=== PATIENT | female | born 1970 | race Caucasian/White ===

== ENCOUNTER → 2018-10-31 | Outpatient (CLI) | payer OTHER ==
[~2018-10-31] MED LIST: ESTR1PAT10 TD; GADOBUTROL 7.5 MMOL/7.5 ML VIAL IV ONE
--- NOTE | 2018-10-31 13:11 | KCIC ---
MRI of the cervical spine without and with contrast 10/31/2018 CLINICAL HISTORY: Neck pain with left arm pain, numbness and weakness. TECHNIQUE: Unenhanced T1-weighted, T2-weighted and inversion recovery sagittal and gradient echo, T1-weighted and T2-weighted axial images of the cervical spine were obtained. After the intravenous administration of 4.5 cc of Gadavist, enhanced T1-weighted sagittal and axial images of the cervical spine were obtained. FINDINGS: Comparison study is dated 01/20/2012. Mild lateral curvature of the cervical spine is seen convex to the right. There is straightening of the normal cervical lordosis. The patient is post anterior fusion using an anterior plate, bone screws and bone graft material at C5-6. Degenerative signal changes are seen involving the remaining discs of the cervical spine. Degenerative signal changes are seen within the marrow surrounding these discs. No area of abnormal signal intensity is seen involving the cervical spinal cord. No area of abnormal contrast enhancement is noted. At the C2-3, C3-4 and C4-5 disc spaces there are minimal to mild generalized disc bulges. Degenerative changes are seen involving the uncovertebral and facet joints bilaterally. These findings do not result in significant central spinal canal or neural foraminal stenosis. At the C5-6 level degenerative changes are seen involving the uncovertebral and facet joints, right greater than left. These findings do not result in significant central spinal canal or neural foraminal stenosis. At the C6-7 disc space there is a mild generalized disc bulge. Superimposed on this disc bulge is a central/left paracentral focal disc protrusion. This measures 3 mm in AP diameter. Degenerative changes are seen involving the uncovertebral and facet joints bilaterally. These findings efface the anterior CSF resulting in mild central spinal canal stenosis without evidence of cord impingement. No neural foraminal stenosis is seen. At the C7-T1 disc space there is a minimal generalized disc bulge. Degenerative changes are seen involving the facet joints bilaterally. These findings do not result in significant central spinal canal or neural foraminal stenosis. IMPRESSION: 1. Post anterior fusion at C5-6. 2. Degenerative changes are seen throughout the cervical spine. These findings result in mild central spinal canal stenosis at C6-7 without evidence of cord impingement. No neural foraminal stenosis is seen. Electronically signed by: Victor Hugo Hermosillo MD (10/31/2018 1:08 PM) [facility]
== END | disposition home or self-care (01) ==
LOC: KCIC MRI 11:17
PROVIDERS: ATTEND Orthopaedic Surgery
DX: M47.22 Other spondylosis with radiculopathy, cervical region (principal); M48.02 Spinal stenosis, cervical region; M50.123 Cervical disc disorder at C6-C7 level with radiculopathy; M43.22 Fusion of spine, cervical region
CPT/HCPCS: 72156; A9585

== ENCOUNTER 2018-11-23 08:16 | Outpatient (CLI) | payer OTHER ==
[~2018-11-23 08:16] MED LIST changes: -GADOBUTROL 7.5 MMOL/7.5 ML VIAL IV ONE
[2018-11-23] MEDS ORDERED: IOHEXOL 300 MG/ML 50 ML VIAL. IT ONE (08:45)
[2018-11-23 09:56] VITALS: BP 114/68
[2018-11-23 10:33] VITALS: BP 109/71
--- NOTE | 2018-11-23 10:34 | NUR ---
Discharge Note: VALE BURTON Discharge instructions and discharge home medications reviewed with Patient and a copy given. All questions have been answered and understanding verbalized. The following instructions and handouts were given: myelogram discharge instructions Discontinued lines and drains: intact. Patient discharged to Home or Self Care withFamily Membervia Ambulated
--- NOTE | 2018-12-02 13:06 | RAD ---
Cervical myelogram, 11/23/2018: History: Neck and left arm pain, previous surgery Under local anesthesia, aseptic conditions and fluoroscopic guidance a lumbar puncture was performed at the upper L1 3 level utilizing a 25-gauge Aneesh spinal needle. Good clear CSF flow was obtained following which 10 cc of Omnipaque 300 was injected into the thecal sac. The spinal needle was then removed and hemostasis obtained. The contrast was maneuvered into the cervical region with appropriate digital imaging performed. 2.5 minutes of fluoroscopy time was utilized. 9 fluoroscopic spot images were recorded. The patient tolerated the procedure well and was sent to CT in good condition. The following findings are delineated on the myelogram: 1. There has been a previous anterior spinal fusion at C5-6 with a surgical plate and multiple screws in place. 2. There are mild anterior and posterior extradural defects at C4-5, C5-6 and C6-7. No high-grade spinal stenosis is evident. 3. There is symmetric opacification of the nerve root sleeves CT of the cervical spine-post myelogram, 11/23/2018: Multidetector CT imaging was performed with multiplanar reconstructions produced. The following findings are delineated: 1. No fracture or dislocation is identified. There are mild degenerative changes involving scattered facet joints. 2. At C2-3 and C3-4 there is no significant posterior disc bulge or protrusion. The central spinal canal and neural foramina are well maintained. 3. At C4-5 there is only slight posterior disc bulging at the midline. The central spinal canal and neural foramina are well maintained. 4. At the fused C5-6 disc level there is only mild posterior spurring. The thecal sac measures 10 mm in AP diameter at the midline. The neural foramina appear well maintained. 5. At C6-7 there is a small posterior disc protrusion just to the left of midline. The thecal sac measures 9-10 mm in AP diameter at the midline. The neural foramina foramina appear well maintained. 6. No significant abnormality is identified at the C7-T1 disc level. The central spinal canal and neural foramina are well maintained. IMPRESSION: 1. Previous anterior spinal fusion and instrumentation at C5-6. 2. Small posterior disc protrusion just to the left of midline at C6-7 with only borderline narrowing of the thecal sac and no significant foraminal narrowing. PQRS Compliance Statement: One or more of the following individualized dose reduction techniques were utilized for this examination: 1. Automated exposure control 2. Adjustment of the mA and/or kV according to patient size 3. Use of iterative reconstruction technique DICTATED and SIGNED BY: ELI ANTHONY MD DATE: 11/23/18 1000 [facility]
== END 2018-11-23 10:36 | disposition home or self-care (01) ==
LOC: RAD 08:16
PROVIDERS: ATTEND Neurological Surgery
DX: M50.123 Cervical disc disorder at C6-C7 level with radiculopathy (principal); Z98.1 Arthrodesis status; F17.200 Nicotine dependence, unspecified, uncomplicated
CPT/HCPCS: 61055; 72126; 72240; 77003; Q9967